=== PATIENT | male | born 1995 | race African-American/Black ===

== ENCOUNTER 2019-01-24 10:18 | Emergency (ER) | payer OTHER ==
[~2019-01-24] VITALS: Ht 182.9 cm; Wt 77.1 kg
[2019-01-24 10:45] VITALS: BP 131/64
[2019-01-24] MEDS ORDERED: KETOROLAC 30 MG/ML VIAL. IM ONE (11:15)
--- NOTE | 2019-01-24 11:29 | PHYS DOC ---
Past Medical History Additional Information: non smoker Adult General Chief Complaint Chief Complaint: KNEE INJURY HPI HPI Patient is a 23-year-old male presents with right knee pain since yesterday. The pain started while he was running and he ran into somebody. He rates his pain as 10 out of 10 when asked what the character of the pain he states that he just feels like symptoms out of place. Has not tried anything prior to arrival. Review of Systems Review of Systems Constitutional: Denies fever or chills [] Eyes: Denies change in visual acuity, redness, or eye pain [] HENT: Denies nasal congestion or sore throat [] Respiratory: Denies cough or shortness of breath [] Cardiovascular: No additional information not addressed in HPI [] GI: Denies abdominal pain, nausea, vomiting, bloody stools or diarrhea [] : Denies dysuria or hematuria [] Musculoskeletal: Denies back pain but reports R Knee pain [] Integument: Denies rash or skin lesions [] Neurologic: Denies headache, focal weakness or sensory changes [] Endocrine: Denies polyuria or polydipsia [] Complete systems were reviewed and found to be within normal limits, except as documented in this note. Current Medications Current Medications Current Medications Medications (Trade) Dose Ordered Sig/Aaron Start Time Stop Time Status Last Admin Dose Admin Ketorolac Tromethamine (Toradol 30mg Vial) 30 mg 1X ONCE 01/24/19 11:15 01/24/19 11:25 DC 01/24/19 11:47 30 MG Allergies Allergies Allergies Coded Allergies Type Severity Reaction Last Updated Verified No Known Drug Allergies 01/24/19 No Physical Exam Physical Exam Constitutional: Well developed, well nourished, no acute distress, non-toxic appearance. [] HENT: Normocephalic, atraumatic, bilateral external ears normal, oropharynx moist, no oral exudates, nose normal. [] Eyes: PERRLA, EOMI, conjunctiva normal, no discharge. [] Neck: Normal range of motion, no tenderness, supple, no stridor. [] Cardiovascular:Heart rate regular rhythm, no murmur [] Lungs & Thorax: Bilateral breath sounds clear to auscultation [] Abdomen: Soft, no tenderness, no masses, no pulsatile masses. [] Skin: Warm, dry, no erythema, no rash. [] Back: No tenderness, no CVA tenderness. [] Extremities: Tenderness and some swelling to the R knee. Positive wilfrido's test on R knee. Neurologic: Alert and oriented X 3, normal motor function, normal sensory function, no focal deficits noted. [] Psychologic: Affect normal, judgement normal, mood normal. [] Current Patient Data Vital Signs Vital Signs Date Time Temp Pulse Resp B/P (MAP) Pulse Ox O2 Delivery O2 Flow Rate FiO2 01/24/19 10:45 98.2 86 18 131/64 (86) 96 Room Air 98.2 EKG EKG [] Radiology/Procedures Radiology/Procedures []PATIENT: LUIS STYLESOUNT: [id number]#: [id number] : 1995 LOCATION: ER AGE: 23 SEX: M EXAM STATUS: REG ER ORD. PHYSICIAN: ISABELL DAMICO APRN REASON: pain PROCEDURE: KNEE RIGHT 3V Three-view right knee radiographs 01/24/2019 CLINICAL HISTORY: Right knee pain. AP, lateral and oblique digital radiographs of the right knee were obtained. No fracture or dislocation of the right knee is seen. No significant degenerative changes are noted. IMPRESSION: No fracture or dislocation of the right knee is seen. Electronically signed by: Renzo Smith MD (01/24/2019 12:02 PM) [facility] Course & Med Decision Making Course & Med Decision Making Pertinent Labs and Imaging studies reviewed. (See chart for details) Will order a x-ray of the knee to check for fracture and dislocation. Will give pain medication. Patient is agreeable. Xray is negative. Will d/c home to follow up with orthopedics. Dragon Disclaimer Dragon Disclaimer This electronic medical record was generated, in whole or in part, using a voice recognition dictation system. Departure Departure Impression: Primary Impression: Knee pain, acute Disposition: HOME, SELF-CARE Condition: STABLE Referrals: UNKNOWN PCP NAME (PCP) ELEUTERIO TURNER II, MD Patient Instructions: Knee Pain, [id number] Additional Instructions: Please follow up with Ortho. Take pain medication OTC as needed per label instructions. Problem Qualifiers Primary Impression: Knee pain, acute Laterality: right Qualified Codes: M25.561 - Pain in right knee ISABELL DAMICO APRN January 24, 2019 11:29
--- NOTE | 2019-01-24 12:05 | RAD ---
Three-view right knee radiographs 01/24/2019 CLINICAL HISTORY: Right knee pain. AP, lateral and oblique digital radiographs of the right knee were obtained. No fracture or dislocation of the right knee is seen. No significant degenerative changes are noted. IMPRESSION: No fracture or dislocation of the right knee is seen. Electronically signed by: Renzo Smith MD (01/24/2019 12:02 PM) [facility]
== END 2019-01-24 12:34 | disposition home or self-care (01) ==
LOC: ER 10:18
DX: M25.561 Pain in right knee (principal); R22.41 Localized swelling, mass and lump, right lower limb
CPT/HCPCS: 73562; 96372; 99284; J1885